=== PATIENT | male | born 1935 | race Caucasian/White ===

== ENCOUNTER 2017-10-16 09:54 | Day surgery (SDC) | payer OTHER ==
[2017-10-16] MEDS ORDERED: LR 1,000 ML IV ONE (10:30)
--- NOTE | 2017-10-16 10:39 | PDGENHP ---
History and Physical - Chief Complaint weight loss, abdominal pain - History of Present Illness 82 yo with hx of abdominal pain, colon cancer and recent dx of ureteral cancer History Information - Allergies/Home Medication List Allergies/Adverse Reactions: Penicillins Allergy (Verified 10/16/17 10:29) Swelling/neck,face,throat I have personally reviewed and updated: family history, medical history, social history, surgical history - Past Medical History cancer Additional medical history: hx colon cancer and partial colectomy Review of Systems Review of Systems: ROS: 10pt was reviewed & negative except for what was stated in HPI & below Physical Exam Physical Exam: Constitutional: no apparent distress Eyes: PERRL Ears, Nose, Mouth, Throat: moist mucous membranes Cardiovascular: regular rate and rhythym Respiratory: no respiratory distress Gastrointestinal: other Skin: warm Musculoskeletal: full muscle strength Neurologic: AAOx3 Psychiatric: interacting appropriately Assessment & Plan Assessment: abd pain, weight loss Plan: egd colon
[2017-10-16] MEDS ORDERED: PROPOFOL 200 MG/20 ML VIAL ONE (11:14)
[2017-10-16] MEDS ORDERED: NALOXONE HCL 0.4 MG/ML INJ IVP PRN (11:20)
[2017-10-16] MEDS ORDERED: ONDANSETRON 4 MG/2 ML VIAL IVP PRN (11:20)
[2017-10-16] MEDS ORDERED: LR 500 ML IV PRN (11:20)
[2017-10-16] MEDS ORDERED: fentaNYL 100 MCG/2 ML INJ IVP PRN (11:20)
[2017-10-16] MEDS ORDERED: ALBUTEROL 3 ML DEYVIAL IH PRN (11:20)
--- NOTE | 2017-10-16 11:20 | PDANEPAE ---
ANE Past Medical History - Cardiovascular History Hx Hypertension: No Hx Arrhythmias: No Hx Chest Pain: No Hx Coronary Artery / Peripheral Vascular Disease: No Hx CHF / Valvular Disease: No Hx Palpitations: No - Pulmonary History Hx COPD: No Hx Asthma/Reactive Airway Disease: No Hx Recent Upper Respiratory Infection: No Hx Oxygen in Use at Home: No Hx Sleep Apnea: No - Neurologic History Hx Cerebrovascular Accident: No Hx Seizures: No Hx Dementia: No - Endocrine History Hx Diabetes: No - Renal History Hx Renal Disorders: Yes Renal History Comment: renal insufficency. 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 06/2017 bladder tumor with removal of tumor. indwelling melchor catheter - Liver History Hx Hepatic Disorders: No - Neurological & Psychiatric Hx Hx Neurological and Psychiatric Disorders: No - Cancer History Hx Cancer: Yes Cancer History Comment: right ureter. bladder. colon - Congenital Disorder History Hx Congenital Disorders: No - GI History Hx Gastrointestinal Disorders: Yes Gastrointestinal History Comment: colon cancer 35 years agow with colostomy present - Other Health History Other Health History: PICC line 06/2016 with blood clot in arm from this - Surgical History Prior Surgeries: 35 yrs ago colostomy& appendectomy. 1969' left knee arthroscopy. 1988 removal adhesions abdomen. stents in right ureter 07/02,11/30 & 07/03. bladder tumor removal 06/2017 ANE Review of Systems Review of Systems: - Exercise capacity METS (RN): 2 METS - Pacemaker Pacemaker Type: Transvenous ANE Patient History - Allergies Allergies/Adverse Reactions: Penicillins Allergy (Verified 10/16/17 10:29) Swelling/neck,face,throat - Smoking Hx Smoking Status: Former smoker ANE Labs/Vital Signs - Vital Signs Height: 154.94 cm Weight: 67.132 kg ANE Physical Exam - Airway Neck exam: FROM Mallampati Score: Class 1 Mouth exam: normal dental/mouth exam - Pulmonary Pulmonary: no respiratory distress, no rales or rhonchi, clear to auscultation - Cardiovascular Cardiovascular: regular rate and rhythym, no murmur, rub, or gallop - ASA Status ASA Status: III ANE Anesthesia Plan Anesthesia Plan: GA with mask
--- NOTE | 2017-10-16 11:25 | GIREPORT ---
[facility] - Endoscopy Department Patient Name: Chris Busby Procedure Date: 10/16/2017 11:04 AM Patient Type: Outpatient Attending MD/ ER Physician: Alex Esquivel MD Procedure: Upper GI endoscopy Indications: Epigastric abdominal pain, Functional Dyspepsia, Heartburn, Weight loss Providers: Alex Esquivel MD Medicines: Sedation Administered by an Anesthesia Professional Complications: No immediate complications. Description of Procedure: After obtaining informed consent, the endoscope was passed under direct vision. Throughout the procedure, the patient's blood pressure, pulse, and oxygen saturations were monitored continuously. The Endoscope was intro duced through the mouth, and advanced to the third part of duodenum. The uppe r GI endoscopy was accomplished without difficulty. The patient tolerated th e procedure well. Findings: The examined esophagus was normal. Diffuse mild inflammation characterized by congestion (edema) and eryth wai was found in the entire examined stomach. Biopsies were taken with a co ld forceps for histology. The examined duodenum was normal. Biopsies for histology were taken wit h a cold forceps for evaluation of celiac disease. Estimated Blood Loss: Estimated blood loss: none. Post Op Diagnosis: - Normal esophagus. - Gastritis. Biopsied. - Normal examined duodenum. Biopsied. Recommendation: - Written discharge instructions were provided to the patient. - The signs and symptoms of potential delayed complications were discus sed with the patient. - Patient has a contact number available for emergencies. - Return to normal activities tomorrow. - Resume previous diet. - Continue present medications. - Await pathology results. Attending Participation: I personally performed the entire procedure. Alex Esquivel MD Alex Esquivel MD 10/16/2017 11:25:01 AM This report has been signed electronicallyDaus Alvin MD Number of Addenda: 0 Note Initiated On: 10/16/2017 11:04 AM [email or web address]
--- NOTE | 2017-10-16 11:41 | GIREPORT ---
Formerly [facility], [facility]–1983 Surgical Services - Endoscopy Department Patient Name: Chris Busby Procedure Date: 10/16/2017 11:03 AM Patient Type: Outpatient Attending MD/ ER Physician: Alex Esquivel MD Procedure: Colonoscopy Indications: High risk colon cancer surveillance: Personal history of colon cancer Providers: Alex Esquivel MD Medicines: Sedation Administered by an Anesthesia Professional Complications: No immediate complications. Description of Procedure: After obtaining informed consent, the scope was passed under direct vis ion. Throughout the procedure, the patient's blood pressure, pulse, and oxyg en saturations were monitored continuously. The Colonoscope with irrigatio n channel was introduced through the descending colostomy and advanced to the cecum, identified by appendiceal orifice and ileocecal valve. The entir e colon was examined. Findings: Multiple small-mouthed diverticula were found in the descending colon. The exam was otherwise without abnormality. Estimated Blood Loss: Estimated blood loss: none. Post Op Diagnosis: - Diverticulosis in the descending colon. - The examination was otherwise normal. - No specimens collected. Recommendation: - Written discharge instructions were provided to the patient. - The signs and symptoms of potential delayed complications were discus sed with the patient. - Patient has a contact number available for emergencies. - Return to normal activities tomorrow. - Resume previous diet. - Continue present medications. - Repeat colonoscopy is not recommended for surveillance. Attending Participation: I personally performed the entire procedure. Alex Esquivel MD Alex Esquivel MD 10/16/2017 11:40:59 AM This report has been signed electronicallyAlex Esquivel MD Number of Addenda: 0 Note Initiated On: 10/16/2017 11:03 AM Total Procedure Duration Time 0 hours 12 minutes 30 seconds [email or web address]
--- NOTE | 2017-10-16 11:45 | POSTANESTH ---
Post Anesthetic Evaluation Cardiovascular Status: Normal, Stable Respiratory Status: Normal, Stable Level of Consciousness/Mental Status: Mildly Sleepy, Arousable Pain Control: Adequate, Prn Tx Ordered Nausea/Vomiting Control: Adequate, Prn Tx Ordered Complications Possibly Related to Anesthesia: None Noted
[2017-10-16 12:54] VITALS: BP 140/77
== END 2017-10-16 13:14 | disposition home or self-care (01) ==
LOC: FSGY 09:54
PROVIDERS: ATTEND Internal Medicine Gastroenterology
PROC: 0DJD8ZZ Inspection of Lower Intestinal Tract, Via Natural or Artificial Opening Endoscopic (ICD-10-PCS; principal; 2017-10-16 11:00)
PROC: 0DB98ZX Excision of Duodenum, Via Natural or Artificial Opening Endoscopic, Diagnostic (ICD-10-PCS; principal; 2017-10-16 11:00)
PROC: 0DB68ZX Excision of Stomach, Via Natural or Artificial Opening Endoscopic, Diagnostic (ICD-10-PCS; principal; 2017-10-16 11:00)
DX: K29.70 Gastritis, unspecified, without bleeding (principal); B96.81 Helicobacter pylori [H. pylori] as the cause of diseases classified elsewhere; R63.4 Abnormal weight loss; K30 Functional dyspepsia; R10.9 Unspecified abdominal pain; K57.30 Diverticulosis of large intestine without perforation or abscess without bleeding; N28.9 Disorder of kidney and ureter, unspecified; Z85.038 Personal history of other malignant neoplasm of large intestine; Z85.54 Personal history of malignant neoplasm of ureter; Z85.51 Personal history of malignant neoplasm of bladder; Z87.891 Personal history of nicotine dependence; Z90.49 Acquired absence of other specified parts of digestive tract; Z93.3 Colostomy status; Z88.0 Allergy status to penicillin
CPT/HCPCS: J2704